=== PATIENT | female | born 1990 | race African-American/Black ===

== ENCOUNTER → 2021-04-19 | Outpatient (CLI) | payer OTHER | LOC: MHCPAIN 14:06 | DX: M54.5 Low back pain (principal); M53.3 Sacrococcygeal disorders, not elsewhere classified; G89.29 Other chronic pain | CPT/HCPCS: G0463 ==

== ENCOUNTER → 2021-05-05 | Outpatient (CLI) | payer OTHER | LOC: MHCPAIN 09:53 | DX: M47.818 Spondylosis without myelopathy or radiculopathy, sacral and sacrococcygeal region (principal); M53.3 Sacrococcygeal disorders, not elsewhere classified | CPT/HCPCS: G0260; J1040; Q9967 ==

== ENCOUNTER → 2021-05-25 | Outpatient (CLI) | payer OTHER | LOC: MHCPAIN 08:04 | DX: M54.32 Sciatica, left side (principal); M54.5 Low back pain; G89.29 Other chronic pain | CPT/HCPCS: G0463 ==

== ENCOUNTER → 2021-06-08 | Outpatient (CLI) | payer OTHER | LOC: MHCPAIN 08:48 | DX: G57.02 Lesion of sciatic nerve, left lower limb (principal); M79.18 Myalgia, other site | CPT/HCPCS: J1040 ==

== ENCOUNTER → 2021-06-21 | Outpatient (CLI) | payer OTHER | LOC: MHCPAIN 09:28 | DX: M79.18 Myalgia, other site (principal); M54.6 Pain in thoracic spine; M41.85 Other forms of scoliosis, thoracolumbar region; G89.29 Other chronic pain | CPT/HCPCS: G0463 ==

== ENCOUNTER → 2021-07-15 | Outpatient (CLI) | payer OTHER | LOC: COL.RAD 08:00 | DX: M51.37 Other intervertebral disc degeneration, lumbosacral region (principal) ==